=== PATIENT | male | born 1975 | race Caucasian/White ===

== ENCOUNTER 2019-11-23 07:36 | Day surgery (SDC) | payer BC ==
[2019-11-21 10:30] VITALS: BMI 33.7
[2019-11-23] MEDS ORDERED: Midazolam HCl 2 mg/2 ml Vial ONE (08:03)
[2019-11-23] MEDS ORDERED: Fentanyl 100 MCG/2 ML VIAL ONE ×2 (08:04→09:10)
[2019-11-23] MEDS ORDERED: Glycopyrrolate 0.2 MG/ML 5 ML SYRINGE ONE (09:36)
[2019-11-23] MEDS ORDERED: EPHEDRINE 25 MG/5 ML SYRINGE ONE (09:36)
[2019-11-23] MEDS ORDERED: Ropivacaine 0.5% HCl/PF (150 MG/30 ML VIAL) ONE (09:36)
[2019-11-23] MEDS ORDERED: Ropivacaine 0.2% HCl/PF (40 MG/20 ML VIAL) ONE (09:36)
[2019-11-23] MEDS ORDERED: PROPOFOL 200 MG/20 ML VIAL ONE (09:36)
[2019-11-23] MEDS ORDERED: Ondansetron PF 4 MG/2 ML Vial ONE (09:36)
[2019-11-23] MEDS ORDERED: Lidocaine 1% PF 5 ML VIAL ONE (09:36)
[2019-11-23] MEDS ORDERED: Rocuronium Bromide 10 MG/ML (10ML VIAL) ONE (09:36)
[2019-11-23] MEDS ORDERED: Fentanyl 100 MCG/2 ML VIAL IV PRN (09:40)
[2019-11-23] MEDS ORDERED: Ondansetron PF 4 MG/2 ML Vial IVP PRN (09:45)
[2019-11-23] MEDS ORDERED: HYDROcodone/Acetaminophen 5/325 mg Tablet PO PRN ×2 (09:45)
[2019-11-23] MEDS ORDERED: Zolpidem Tartrate 5 MG TAB PO PRN (09:45)
[2019-11-23] MEDS ORDERED: traMADol HCl 50 MG TAB PO PRN ×2 (09:45)
[2019-11-23] MEDS ORDERED: Ropivacaine 0.2% 550 ML 550 ML NERVE BLCK SCH (09:45)
[2019-11-23] MEDS ORDERED: Promethazine HCl 25 MG/ML VIAL IM PRN (09:45)
--- NOTE | 2019-11-25 19:07 | OP ---
DATE OF PROCEDURE: 11/23/2019 PREOPERATIVE DIAGNOSES: Left frozen shoulder and impingement. POSTOPERATIVE DIAGNOSES: Left frozen shoulder and impingement. PROCEDURE PERFORMED: Left shoulder manipulation under anesthesia, manipulation and major synovectomy of the glenohumeral joint, and subacromial decompression. ANESTHESIA: General. ESTIMATED BLOOD LOSS: Minimal. SPECIMEN: None. DRAINS: None. COMPLICATIONS: None. DESCRIPTION OF PROCEDURE: The patient was taken to the operating room, where general anesthesia was induced. Left arm was manipulated under anesthesia. I was able to get his elevation to about 170 degrees with complete relaxation. I did hear some audible pops as the tissue broke loose and got external rotation to 45 degrees. Internal rotation as usual is the case, did not get much improvement. The patient was placed in a right lateral decubitus position, prepped and draped in usual sterile fashion. 15 pounds of traction was applied. Scope was placed into the glenohumeral joint. I debrided the capsule anteriorly, posteriorly, and inferiorly, trying to leave a good size gap between the cut tissues and debrided the margins of the cut tissues. I did leave the labrum intact. He did have a little bit of degenerative change on the glenohumeral articular cartilage, probably since he has had this process for at least one year. His biceps tendon was in good condition. The scope was placed in the subacromial space. Subacromial decompression was performed with electric blade device, removing bursal tissue from bone and cuff and recreating the subacromial bursal space. Shoulder was then drained. Portals were closed with nylon sutures and sterile dressings applied. Job ID: [id number]
== END 2019-11-23 13:05 | disposition home or self-care (01) ==
LOC: SDC 07:36
PROVIDERS: ATTEND Orthopaedic Surgery
PROC: 0RQ Upper Joints, Repair (ICD-10-PCS; principal; 2019-11-23)
PROC: 0RBK4ZZ Excision of Left Shoulder Joint, Percutaneous Endoscopic Approach (ICD-10-PCS; principal; 2019-11-23)
PROC: 3E0T3BZ Introduction of Anesthetic Agent into Peripheral Nerves and Plexi, Percutaneous Approach (ICD-10-PCS; principal; 2019-11-23)
DX: M75.02 Adhesive capsulitis of left shoulder (principal); M25.812 Other specified joint disorders, left shoulder; G89.18 Other acute postprocedural pain; F32.9 Major depressive disorder, single episode, unspecified; Z79.899 Other long term (current) drug therapy
CPT/HCPCS: A4306; J0690; J2250; J2405; J2704; J2795; J3010

== ENCOUNTER 2019-12-10 15:40 | Outpatient (CLI) | payer BC ==
--- NOTE | 2019-12-10 17:01 | RAD ---
EXAM: 3 views of the left foot HISTORY: Psoriatic arthritis COMPARISON: None FINDINGS: 3 views of the left foot shows no evidence of acute fracture or dislocation. No osseous ero sions are seen. No soft tissue swelling is seen. No degenerative changes are present. IMPRESSION: No evidence of acute osseous abnormality.
--- NOTE | 2019-12-10 17:02 | RAD ---
EXAM: 3 views of the left hand COMPARISON: None HISTORY: Hand pain FINDINGS: 3 views of the hand shows no evidence of acute fracture or dislocation. Remodeling of the f ifth metacarpal may be secondary to remote healed fracture. No degenerative changes are seen. No soft tissue swelling is present. IMPRESSION: Unremarkable exam.
--- NOTE | 2019-12-10 17:03 | RAD ---
AP view of the pelvis INDICATION: 44-year-old male with history of arthritis COMPARISON: None. FINDINGS: Bones: No acute fracture or subluxation is evident. Bone mineralization appears within normal limits. Hips: There is mild right hip osteoarthrosis. SI joints appear within normal limits. No periarticular erosions are evident. SI joints and symphysis pubis: Normal appearing. Intrapelvic contents: Small phleboliths are seen within the lower pelvis. IMPRESSION: Mild right hip osteoarthrosis.
--- NOTE | 2019-12-10 17:03 | RAD ---
EXAM: 3 views of the right hand COMPARISON: None HISTORY: Arthritis FINDINGS: 3 views of the hand shows no evidence of acute fracture or dislocation. No osseous erosions are seen. No degenerative changes are seen. No soft tissue swelling is present. A radiopaque foreign body is seen in the thenar webspace. IMPRESSION: Unremarkable exam.
--- NOTE | 2019-12-10 17:03 | RAD ---
EXAM: 3 views of the right foot HISTORY: Psoriatic arthritis COMPARISON: None FINDINGS: 3 views of the right foot shows no evidence of acute fracture or dislocation. No soft tissu e swelling is seen. No osseous erosions are seen. No degenerative changes are present. IMPRESSION: No evidence of acute osseous abnormality.
== END 2019-12-10 15:41 | disposition home or self-care (01) ==
LOC: RAD-FRANK 15:40
PROVIDERS: ATTEND Internal Medicine Rheumatology
DX: L40.50 Arthropathic psoriasis, unspecified (principal); N28.9 Disorder of kidney and ureter, unspecified; M72.2 Plantar fascial fibromatosis; M54.12 Radiculopathy, cervical region; Z79.1 Long term (current) use of non-steroidal anti-inflammatories (NSAID); M16.10 Unilateral primary osteoarthritis, unspecified hip
CPT/HCPCS: 72170

== ENCOUNTER 2021-05-25 15:45 | Outpatient (CLI) | payer BC | END 2021-05-25 15:46 | disposition home or self-care (01) | LOC: RAD-FRANK 15:45 | PROVIDERS: ATTEND Internal Medicine Rheumatology | DX: M47.22 Other spondylosis with radiculopathy, cervical region (principal) | CPT/HCPCS: 72050 ==

== ENCOUNTER 2021-10-22 10:46 | Outpatient (CLI) | payer BC | END 2021-10-22 10:47 | disposition home or self-care (01) | LOC: RAD 10:46 | PROVIDERS: ATTEND Internal Medicine | DX: Z02.71 Encounter for disability determination (principal); M47.816 Spondylosis without myelopathy or radiculopathy, lumbar region; M53.87 Other specified dorsopathies, lumbosacral region | CPT/HCPCS: 72100 ==

== ENCOUNTER 2024-10-05 14:10 | Inpatient (IN) | payer OTHER, SELFPAY ==
[2024-10-05] MEDS ORDERED: Ondansetron PF 4 MG/2 ML Vial ONE (15:00)
[2024-10-05 15:09] LABS: #Basophils 0.06 10x3/uL (0.0-0.2); #Eosinophils 0.14 10x3/uL (0.0-0.7); #Monocytes 0.88 10x3/uL (0.11-0.59); #Neutrophils 9.27 10x3/uL (1.40-6.50); %Basophils 0.5 % (0.0-1.0); %Eosinophils 1.2 % (0.0-10.0); %Lymphocytes 11.5 % (21.0-51.0); %Monocytes 7.5 % (0.0-10.0); %Neutrophils 78.5 % (42.0-75.0); Hematocrit 52.6 % (42.0-52.0); Hemoglobin 17.9 g/dL (14.0-18.0); Mean Corpuscular Hemoglobin 29.3 pg (27.0-31.0); Mean Corpuscular Volume 86.2 fL (78.0-98.0); Platelet Count 219 10x3/uL (130-400); Red Blood Cell (RBC) Count 6.10 mill/uL (4.70-6.10); White Blood Cell (WBC) Count 11.81 10x3/uL (4.8-10.8)
[2024-10-05 15:32] LABS: Anion Gap 17 mmol/L (10-20); BUN (Urea Nitrogen) 12 mg/dL (8.9-20.6); Calc. Creatinine Clearance 0 mL/min (70-130); Calcium 9.8 mg/dL (7.8-10.44); Carbon Dioxide 25 mmol/L (22-29); Chloride 101 mmol/L (98-107); Glucose 118 mg/dL (70-105); Potassium 4.5 mmol/L (3.5-5.1); Sodium 138 mmol/L (136-145)
[2024-10-05] MEDS ORDERED: PROPOFOL 40 ML ONE (15:33)
[2024-10-05] MEDS ORDERED: Glucagon 1 MG/ML KIT IM PRN (17:05)
[2024-10-05] MEDS ORDERED: Dextrose 50% Abboject 50 ML SYRINGE SLOW IVP PRN (17:05)
[2024-10-05] MEDS ORDERED: Ondansetron PF 4 MG/2 ML Vial IVP PRN (17:05)
[2024-10-05 22:58] VITALS: BMI 32.8
[2024-10-06] MEDS: Acetaminophen 325 MG TAB PO PRN (01:15)
[2024-10-06 05:02] LABS: #Basophils 0.05 10x3/uL (0.0-0.2); #Eosinophils 0.21 10x3/uL (0.0-0.7); #Monocytes 0.95 10x3/uL (0.11-0.59); #Neutrophils 10.11 10x3/uL (1.40-6.50); %Basophils 0.4 % (0.0-1.0); %Eosinophils 1.6 % (0.0-10.0); %Lymphocytes 11.1 % (21.0-51.0); %Monocytes 7.4 % (0.0-10.0); %Neutrophils 78.5 % (42.0-75.0); Hematocrit 49.0 % (42.0-52.0); Hemoglobin 17.0 g/dL (14.0-18.0); Mean Corpuscular Hemoglobin 29.7 pg (27.0-31.0); Mean Corpuscular Volume 85.5 fL (78.0-98.0); Platelet Count 186 10x3/uL (130-400); Red Blood Cell (RBC) Count 5.73 mill/uL (4.70-6.10); White Blood Cell (WBC) Count 12.88 10x3/uL (4.8-10.8)
[2024-10-06 05:15] LABS: Anion Gap 12 mmol/L (10-20); BUN (Urea Nitrogen) 12 mg/dL (8.9-20.6); Calc. Creatinine Clearance 92 mL/min (70-130); Calcium 8.6 mg/dL (7.8-10.44); Carbon Dioxide 23 mmol/L (22-29); Chloride 105 mmol/L (98-107); Glucose 110 mg/dL (70-105); Potassium 3.7 mmol/L (3.5-5.1); Sodium 136 mmol/L (136-145)
[2024-10-06] MEDS ORDERED: fentaNYL PF 100 MCG/2 ML SYRINGE ONE ×3 (07:30→10:00)
[2024-10-06] MEDS ORDERED: PROPOFOL 20 ML ONE (07:30)
[2024-10-06] MEDS ORDERED: Ketorolac Tromethamine 30 MG (1 mL) VIAL ONE (08:16)
[2024-10-06] MEDS ORDERED: PHENYLEPHRINE-NS 100 MCG/ML 10 ML SYRINGE ONE (08:31)
[2024-10-06] MEDS ORDERED: CEFAZOLIN 1 GM VIAL ONE (08:31)
[2024-10-06] MEDS ORDERED: Glycopyrrolate 0.2 MG/ML 5 ML SYRINGE ONE (08:40)
[2024-10-06] MEDS ORDERED: HYDROmorphone 0.5 MG/0.5 ML SYR SLOW IVP PRN (09:02)
[2024-10-06] MEDS ORDERED: Benzocaine/Menthol 1 LOZ LOZ PO PRN (09:44)
[2024-10-06] MEDS ORDERED: Acetaminophen 325 MG TAB PO SCH (09:44)
[2024-10-06] MEDS ORDERED: Milk Of Magnesia 30 ML UDCUP PO PRN (09:44)
[2024-10-06] MEDS ORDERED: Fleet Saline Enema 133 ML BOT PR PRN (09:44)
[2024-10-06] MEDS ORDERED: Bisacodyl 10 MG SUPP PR PRN (09:44)
[2024-10-06] MEDS ORDERED: HYDROmorphone 0.5 MG/0.5 ML SYRINGE ONE ×4 (09:45→10:47)
[2024-10-06] MEDS: oxyCODONE 5 MG TAB PO PRN ×2 (11:21→16:54)
[2024-10-06] MEDS: Ondansetron PF 4 MG/2 ML Vial IVP PRN (11:22)
[2024-10-06] MEDS: Acetaminophen 500 MG TAB PO SCH (11:26)
[2024-10-06] MEDS: Methocarbamol 500 MG TAB PO PRN (13:51)
[2024-10-06] MEDS ORDERED: CEFAZOLIN 1 GM VIAL SLOW IVP SCH (14:00)
[2024-10-06] MEDS: Gabapentin 300 MG CAP PO SCH (15:04)
[2024-10-06] MEDS: Ferrous Gluconate 324 MG TAB PO SCH (21:19)
[2024-10-06] MEDS: Senokot S 8.6-50 MG TAB PO SCH (21:20)
[2024-10-07 06:15] LABS: Hematocrit 45.5 % (42.0-52.0); Hemoglobin 15.4 g/dL (14.0-18.0); Mean Corpuscular Hemoglobin 29.4 pg (27.0-31.0); Mean Corpuscular Volume 86.8 fL (78.0-98.0); Platelet Count 152 10x3/uL (130-400); Red Blood Cell (RBC) Count 5.24 mill/uL (4.70-6.10); White Blood Cell (WBC) Count 10.99 10x3/uL (4.8-10.8)
[2024-10-07 06:17] LABS: #Basophils 0.04 10x3/uL (0.0-0.2); #Eosinophils 0.19 10x3/uL (0.0-0.7); #Monocytes 0.64 10x3/uL (0.11-0.59); #Neutrophils 9.17 10x3/uL (1.40-6.50); %Basophils 0.4 % (0.0-1.0); %Eosinophils 1.7 % (0.0-10.0); %Lymphocytes 8.8 % (21.0-51.0); %Monocytes 5.8 % (0.0-10.0); %Neutrophils 82.8 % (42.0-75.0); Hematocrit 45.3 % (42.0-52.0); Hemoglobin 15.5 g/dL (14.0-18.0); Mean Corpuscular Hemoglobin 29.8 pg (27.0-31.0); Mean Corpuscular Volume 87.1 fL (78.0-98.0); Platelet Count 145 10x3/uL (130-400); Red Blood Cell (RBC) Count 5.20 mill/uL (4.70-6.10); White Blood Cell (WBC) Count 11.06 10x3/uL (4.8-10.8)
[2024-10-07 06:37] LABS: Anion Gap 13 mmol/L (10-20); BUN (Urea Nitrogen) 9 mg/dL (8.9-20.6); Calc. Creatinine Clearance 98 mL/min (70-130); Calcium 8.2 mg/dL (7.8-10.44); Carbon Dioxide 25 mmol/L (22-29); Chloride 105 mmol/L (98-107); Glucose 108 mg/dL (70-105); Potassium 4.0 mmol/L (3.5-5.1); Sodium 139 mmol/L (136-145)
[2024-10-07] MEDS: Enoxaparin 40 MG (0.4 mL) SYRINGE SC SCH (08:56)
[2024-10-07] MEDS: Multivitamin W/ Minerals 1 TAB PO SCH (08:59)
[2024-10-07] MEDS: HYDROmorphone 0.5 MG/0.5 ML SYRINGE SLOW IVP PRN (12:59)
[2024-10-07] MEDS: Cholecalciferol 1,000 UNITS (25 MCG) TAB PO SCH (13:00)
[2024-10-07] MEDS: Lactulose 20 GM (30 mL) UDCUP PO SCH (20:51)
[2024-10-07] MEDS ORDERED: LURASIDONE HCL 120 MG PO SCH (21:00)
[2024-10-08 06:12] LABS: #Basophils 0.04 10x3/uL (0.0-0.2); #Eosinophils 0.30 10x3/uL (0.0-0.7); #Monocytes 0.94 10x3/uL (0.11-0.59); #Neutrophils 8.61 10x3/uL (1.40-6.50); %Basophils 0.4 % (0.0-1.0); %Eosinophils 2.6 % (0.0-10.0); %Lymphocytes 12.0 % (21.0-51.0); %Monocytes 8.3 % (0.0-10.0); %Neutrophils 76.0 % (42.0-75.0); Hematocrit 41.2 % (42.0-52.0); Hemoglobin 14.2 g/dL (14.0-18.0); Mean Corpuscular Hemoglobin 30.0 pg (27.0-31.0); Mean Corpuscular Volume 86.9 fL (78.0-98.0); Platelet Count 161 10x3/uL (130-400); Red Blood Cell (RBC) Count 4.74 mill/uL (4.70-6.10); White Blood Cell (WBC) Count 11.33 10x3/uL (4.8-10.8)
[2024-10-08 06:25] LABS: Anion Gap 12 mmol/L (10-20); BUN (Urea Nitrogen) 9 mg/dL (8.9-20.6); Calc. Creatinine Clearance 120 mL/min (70-130); Calcium 8.1 mg/dL (7.8-10.44); Carbon Dioxide 24 mmol/L (22-29); Chloride 106 mmol/L (98-107); Glucose 92 mg/dL (70-105); Potassium 3.9 mmol/L (3.5-5.1); Sodium 138 mmol/L (136-145)
[2024-10-08] MEDS: BuPROPion XL 150 MG ER.TAB PO SCH (08:47)
[2024-10-08] MEDS: Losartan 25 MG TAB PO SCH (08:47)
[2024-10-08] MEDS: Sertraline 100 MG TAB PO SCH (08:48)
[2024-10-08] MEDS ORDERED: LISDEXAMFETAMINE DIMESYLATE 70 MG PO SCH (09:00)
[2024-10-08] MEDS ORDERED: Ketorolac Tromethamine 30 MG (1 mL) VIAL IVP PRN (11:52)
[2024-10-09 05:27] LABS: #Basophils 0.05 10x3/uL (0.0-0.2); #Eosinophils 0.26 10x3/uL (0.0-0.7); #Monocytes 0.82 10x3/uL (0.11-0.59); #Neutrophils 8.51 10x3/uL (1.40-6.50); %Basophils 0.5 % (0.0-1.0); %Eosinophils 2.4 % (0.0-10.0); %Lymphocytes 10.9 % (21.0-51.0); %Monocytes 7.5 % (0.0-10.0); %Neutrophils 78.0 % (42.0-75.0); Hematocrit 39.8 % (42.0-52.0); Hemoglobin 13.8 g/dL (14.0-18.0); Mean Corpuscular Hemoglobin 30.1 pg (27.0-31.0); Mean Corpuscular Volume 86.7 fL (78.0-98.0); Platelet Count 178 10x3/uL (130-400); Red Blood Cell (RBC) Count 4.59 mill/uL (4.70-6.10); White Blood Cell (WBC) Count 10.91 10x3/uL (4.8-10.8)
[2024-10-09 05:38] LABS: Anion Gap 13 mmol/L (10-20); BUN (Urea Nitrogen) 8 mg/dL (8.9-20.6); Calc. Creatinine Clearance 127 mL/min (70-130); Calcium 8.5 mg/dL (7.8-10.44); Carbon Dioxide 24 mmol/L (22-29); Chloride 103 mmol/L (98-107); Glucose 101 mg/dL (70-105); Potassium 3.6 mmol/L (3.5-5.1); Sodium 136 mmol/L (136-145)
[2024-10-11] MEDS: Colchicine 0.6 MG TAB PO SCH (19:47)
[2024-10-11 23:50] VITALS: BMI 32.8
[2024-10-12] MEDS: Metoprolol Succinate XL 25 MG ER.TAB PO SCH (13:18)
[2024-10-12 17:36] LABS: #Basophils 0.03 10x3/uL (0.0-0.2); #Eosinophils 0.16 10x3/uL (0.0-0.7); #Monocytes 0.86 10x3/uL (0.11-0.59); #Neutrophils 8.72 10x3/uL (1.40-6.50); %Basophils 0.3 % (0.0-1.0); %Eosinophils 1.4 % (0.0-10.0); %Lymphocytes 10.9 % (21.0-51.0); %Monocytes 7.7 % (0.0-10.0); %Neutrophils 78.5 % (42.0-75.0); Hematocrit 40.9 % (42.0-52.0); Hemoglobin 13.8 g/dL (14.0-18.0); Mean Corpuscular Hemoglobin 29.5 pg (27.0-31.0); Mean Corpuscular Volume 87.4 fL (78.0-98.0); Platelet Count 245 10x3/uL (130-400); Red Blood Cell (RBC) Count 4.68 mill/uL (4.70-6.10); White Blood Cell (WBC) Count 11.11 10x3/uL (4.8-10.8)
[2024-10-12 17:54] LABS: Anion Gap 15 mmol/L (10-20); BUN (Urea Nitrogen) 14 mg/dL (8.9-20.6); Calc. Creatinine Clearance 126 mL/min (70-130); Calcium 9.1 mg/dL (7.8-10.44); Carbon Dioxide 27 mmol/L (22-29); Chloride 99 mmol/L (98-107); Glucose 96 mg/dL (70-105); Potassium 3.9 mmol/L (3.5-5.1); Sodium 137 mmol/L (136-145)
[2024-10-13] MEDS: Metoprolol Succinate XL 25 MG ER.TAB PO SCH (08:47)
[2024-10-13] MEDS: NIFEdipine XL 30 MG ER.TAB PO SCH (11:18)
[2024-10-14] MEDS ORDERED: NIFEdipine XL 30 MG ER.TAB PO SCH (09:00)
[2024-10-14] MEDS: NIFEdipine XL 60 MG ER.TAB PO SCH (09:38)
[2024-10-15] MEDS: NIFEdipine XL 30 MG ER.TAB PO SCH (08:52)
[2024-10-15] MEDS ORDERED: Electrolyte Replacement Protocol 1 EACH FS SCH (09:08)
[2024-10-15] MEDS ORDERED: Lidocaine 1% PF 5 ML VIAL ONE (10:46)
[2024-10-15] MEDS ORDERED: PROPOFOL 20 ML ONE (10:46)
[2024-10-15] MEDS ORDERED: Ondansetron PF 4 MG/2 ML Vial ONE ×2 (11:34→13:46)
[2024-10-15] MEDS ORDERED: Ropivacaine 0.5% HCl/PF (150 MG/30 ML VIAL) ONE (11:35)
[2024-10-15] MEDS ORDERED: Ropivacaine 0.2% HCl/PF 20 ML ONE (11:35)
[2024-10-15] MEDS ORDERED: CEFAZOLIN 2 GM VIAL ONE (11:54)
[2024-10-15] MEDS ORDERED: Ropivacaine 0.2% 550 ML 550 ML NERVE BLCK SCH (12:15)
[2024-10-15] MEDS ORDERED: Ondansetron PF 4 MG/2 ML Vial IVP PRN (12:15)
[2024-10-15] MEDS: Ketorolac Tromethamine 30 MG (1 mL) VIAL IVP SCH (17:50)
[2024-10-16 05:06] LABS: #Basophils 0.03 10x3/uL (0.0-0.2); #Eosinophils 0.09 10x3/uL (0.0-0.7); #Monocytes 1.17 10x3/uL (0.11-0.59); #Neutrophils 11.96 10x3/uL (1.40-6.50); %Basophils 0.2 % (0.0-1.0); %Eosinophils 0.6 % (0.0-10.0); %Lymphocytes 11.4 % (21.0-51.0); %Monocytes 7.7 % (0.0-10.0); %Neutrophils 79.2 % (42.0-75.0); Hematocrit 43.3 % (42.0-52.0); Hemoglobin 14.9 g/dL (14.0-18.0); Mean Corpuscular Hemoglobin 29.3 pg (27.0-31.0); Mean Corpuscular Volume 85.1 fL (78.0-98.0); Platelet Count 322 10x3/uL (130-400); Red Blood Cell (RBC) Count 5.09 mill/uL (4.70-6.10); White Blood Cell (WBC) Count 15.10 10x3/uL (4.8-10.8)
[2024-10-16] MEDS: HYDROcodone/Acetaminophen 10/325 mg Tablet PO PRN (05:20)
[2024-10-16 05:30] LABS: Anion Gap 16 mmol/L (10-20); BUN (Urea Nitrogen) 27 mg/dL (8.9-20.6); Calc. Creatinine Clearance 104 mL/min (70-130); Calcium 9.3 mg/dL (7.8-10.44); Carbon Dioxide 19 mmol/L (22-29); Chloride 103 mmol/L (98-107); Glucose 107 mg/dL (70-105); Magnesium 2.2 mg/dL (1.6-2.6); Potassium 3.8 mmol/L (3.5-5.1); Sodium 134 mmol/L (136-145)
[2024-10-16] MEDS: NIFEdipine XL 30 MG ER.TAB PO SCH (09:09)
[2024-10-17 07:32] LABS: Anion Gap 14 mmol/L (10-20); BUN (Urea Nitrogen) 15 mg/dL (8.9-20.6); Calc. Creatinine Clearance 156 mL/min (70-130); Calcium 9.2 mg/dL (7.8-10.44); Carbon Dioxide 21 mmol/L (22-29); Chloride 104 mmol/L (98-107); Glucose 98 mg/dL (70-105); Potassium 3.9 mmol/L (3.5-5.1); Sodium 135 mmol/L (136-145)
[2024-10-17] MEDS: HYDROcodone/Acetaminophen 10/325 mg Tablet PO PRN (08:58)
[2024-10-17] MEDS: Losartan 25 MG TAB PO SCH (13:33)
[2024-10-17 15:44] VITALS: BP 151/88; TEMP 98
== END 2024-10-17 18:40 | disposition home or self-care (01) | DRG 493 ==
LOC: ERS 14:10 → SURG A 17:05
PROVIDERS: ADMIT Student in an Organized Health Care Education/Training Program; ATTEND Surgery
PROC: 3E03329 Introduction of Other Anti-infective into Peripheral Vein, Percutaneous Approach (ICD-10-PCS; 2024-10-05)
PROC: 0QSH35Z Reposition Left Tibia with External Fixation Device, Percutaneous Approach (ICD-10-PCS; principal; 2024-10-06)
PROC: 3E033XZ Introduction of Vasopressor into Peripheral Vein, Percutaneous Approach (ICD-10-PCS; 2024-10-06)
PROC: 5A09457 Assistance with Respiratory Ventilation, 24-96 Consecutive Hours, Continuous Positive Airway Pressure (ICD-10-PCS; 2024-10-10)
PROC: 0QPH05Z Removal of External Fixation Device from Left Tibia, Open Approach (ICD-10-PCS; 2024-10-15)
PROC: 0QSH04Z Reposition Left Tibia with Internal Fixation Device, Open Approach (ICD-10-PCS; 2024-10-15)
DX: S82.872A Displaced pilon fracture of left tibia, initial encounter for closed fracture (principal); E87.1 Hypo-osmolality and hyponatremia; N17.9 Acute kidney failure, unspecified; S82.492A Other fracture of shaft of left fibula, initial encounter for closed fracture; I10 Essential (primary) hypertension; W19.XXXA Unspecified fall, initial encounter; Z98.890 Other specified postprocedural states; E66.9 Obesity, unspecified; Z68.32 Body mass index [BMI] 32.0-32.9, adult; G47.33 Obstructive sleep apnea (adult) (pediatric); N18.2 Chronic kidney disease, stage 2 (mild); F41.9 Anxiety disorder, unspecified; E55.9 Vitamin D deficiency, unspecified; Z79.899 Other long term (current) drug therapy
CPT/HCPCS: 27762; 27788; 27810; 36415; 71045; 76376; 80048; 82306; 83735; 83880; 85025; 86850; 86900; 86901; 93005; 96374; 96375; 96376; 99152; A4306; C1713; J0169; J0665; J0690; J1100; J1171; J1650; J1885; J2250; J2270; J2405; J2704; J2795; J3010; J7030; Q0162

== ENCOUNTER 2024-12-03 17:43 | Inpatient (IN) | payer SELFPAY ==
[~2024-12-03 17:43] MED LIST: CEFAZOLIN 2 GM VIAL ONE; HYDROmorphone 2 MG/ML VIAL ONE; Ondansetron PF 4 MG/2 ML Vial ONE; PHENYLEPHRINE-NS 100 MCG/ML 10 ML SYRINGE ONE; PROPOFOL 20 ML ONE; PROPOFOL 200 MG/20 ML VIAL ONE; Rocuronium Bromide 10 MG/ML (10ML VIAL) ONE; SUGAMMADEX SODIUM 200 MG/2 ML VIAL ONE; fentaNYL PF 100 MCG/2 ML SYRINGE ONE
[2024-12-03] MEDS ORDERED: Colchicine 0.6 MG TAB PO PRN (17:56)
[2024-12-03] MEDS ORDERED: Ibuprofen 800 MG TAB PO PRN (17:56)
[2024-12-03] MEDS ORDERED: Communication Order-Pharmacy FS SCH (18:00)
[2024-12-03] MEDS: Aspirin 81 mg Enteric Coated Tablet PO SCH (20:07)
[2024-12-03] MEDS: Ondansetron PF 4 MG/2 ML Vial SLOW IVP PRN (20:07)
[2024-12-03] MEDS: Gabapentin 300 MG CAP PO SCH (20:07)
[2024-12-03] MEDS: HYDROcodone/Acetaminophen 10/325 mg Tablet PO PRN (23:14)
[2024-12-03] MEDS: Acetaminophen 325 MG TAB PO PRN (23:15)
[2024-12-04 02:00] VITALS: BMI 33.2
[2024-12-04 05:44] LABS: #Basophils 0.03 10x3/uL (0.0-0.2); #Eosinophils Less than 0.03 10x3/uL (0.0-0.7); #Monocytes 1.06 10x3/uL (0.11-0.59); #Neutrophils 13.11 10x3/uL (1.40-6.50); %Basophils 0.2 % (0.0-1.0); %Eosinophils 0.0 % (0.0-10.0); %Lymphocytes 6.0 % (21.0-51.0); %Monocytes 7.0 % (0.0-10.0); %Neutrophils 86.1 % (42.0-75.0); Hematocrit 42.5 % (42.0-52.0); Hemoglobin 13.9 g/dL (14.0-18.0); Mean Corpuscular Hemoglobin 29.3 pg (27.0-31.0); Mean Corpuscular Volume 89.5 fL (78.0-98.0); Platelet Count 238 10x3/uL (130-400); Red Blood Cell (RBC) Count 4.75 mill/uL (4.70-6.10); White Blood Cell (WBC) Count 15.23 10x3/uL (4.8-10.8)
[2024-12-04] MEDS ORDERED: LISDEXAMFETAMINE DIMESYLATE 70 MG PO SCH (09:00)
[2024-12-04] MEDS: Cholecalciferol 1,000 UNITS (25 MCG) TAB PO SCH (09:33)
[2024-12-04] MEDS: Sertraline 100 MG TAB PO SCH (09:34)
[2024-12-04] MEDS: BuPROPion XL 150 MG ER.TAB PO SCH (09:34)
[2024-12-04] MEDS: Losartan 25 MG TAB PO SCH (09:34)
[2024-12-04] MEDS: FLU (Fluarix Triv) 25-26 (6MOS UP)/PF 45 MCG/0.5 ML Syringe IM ONE (09:50)
[2024-12-04 11:47] VITALS: BP 103/60; TEMP 99.1
== END 2024-12-04 13:24 | disposition home or self-care (01) | DRG 494 ==
LOC: SDC 17:43 → SURG B 17:53
PROVIDERS: ADMIT Orthopaedic Surgery; ATTEND Orthopaedic Surgery
PROC: 0QSK04Z Reposition Left Fibula with Internal Fixation Device, Open Approach (ICD-10-PCS; principal; 2024-12-03)
PROC: 0QSH04Z Reposition Left Tibia with Internal Fixation Device, Open Approach (ICD-10-PCS; 2024-12-03)
PROC: 0YPB0YZ Removal of Other Device from Left Lower Extremity, Open Approach (ICD-10-PCS; 2024-12-03)
PROC: 3E02340 Introduction of Influenza Vaccine into Muscle, Percutaneous Approach (ICD-10-PCS; 2024-12-04)
DX: S82.872A Displaced pilon fracture of left tibia, initial encounter for closed fracture (principal); S82.402A Unspecified fracture of shaft of left fibula, initial encounter for closed fracture; Z98.890 Other specified postprocedural states; F32.A Depression, unspecified; Z79.899 Other long term (current) drug therapy
CPT/HCPCS: 36415; 85025; 90656; C1713; J1100; J1171; J2250; J2704; J3010; J3373; J8610